=== PATIENT | male | born 1945 | race Caucasian/White ===

== ENCOUNTER 2017-09-29 22:46 | Emergency (ER) | payer MEDICARE, BC ==
[2017-09-29 23:07] VITALS: BP 137/62
[2017-09-29] MEDS ORDERED: Acetaminophen 500 MG Tab PO ONE (23:21)
[2017-09-29] MEDS ORDERED: Sodium Chloride 0.9% 1,000 ML IV SCH (23:30)
--- NOTE | 2017-09-29 23:50 | EDM.PDOC ---
ED HPI GENERAL MEDICAL PROBLEM - General Chief Complaint: Fever Stated Complaint: ILLNESS Time Seen by Provider: 09/29/17 23:10 Source of Information: Reports: Patient, Family History Limitations: Reports: No Limitations - History of Present Illness INITIAL COMMENTS - FREE TEXT/NARRATIVE: 72-year-old male who has a history of a severe right leg injury has chronic lymphedema and swelling of the right leg. Intermittently he participates in and activity that causes movement of the "toxins" from his leg and he spikes a temporary fever. He receives IV hydration and anti-inflammatories or Tylenol and the fever typically resolves in 12 hours. He has no other symptoms such as illness, sore throat, cough, redness of the skin, dysuria, nausea or vomiting. His fever is already been reduced to 99.3. He declines any workup, just is looking for IV fluids. Onset: Sudden Duration: Hour(s): (Fever has been ongoing for the last few hours) Location: Reports: Lower Extremity, Right Severity: Moderate - Related Data Allergies Allergy/AdvReac Type Severity Reaction Status Date / Time No Known Allergies Allergy Verified 07/07/13 08:55 Home Meds: Home Meds Allopurinol [Zyloprim] 300 mg PO DAILY 07/07/13 [History] Aspirin [Children's Aspirin] 81 mg PO DAILY 07/07/13 [History] Fenofibrate Nanocrystallized [Fenofibrate] 48 mg PO DAILY 07/07/13 [History] Insulin Aspart [NovoLOG] 0 unit SQ ACBRK 07/07/13 [History] Insulin Glarg,Human.Rec.Analog [LantUS] 90 unit SQ BID 07/07/13 [History] Naproxen [Naprosyn] 500 mg PO DAILY PRN 07/07/13 [History] Omeprazole 20 mg PO DAILY 07/07/13 [History] Simvastatin [Zocor] 10 mg PO DAILY 07/07/13 [History] amLODIPine [Norvasc] 10 mg PO DAILY 07/07/13 [History] Cholecalciferol (Vitamin D3) [Vitamin D3] 2,000 unit PO ASDIRECTED 09/29/17 [ History] Doxazosin Mesylate [Cardura] 2 mg PO DAILY 09/29/17 [History] Lisinopril [Zestril] 2.5 mg PO DAILY 09/29/17 [History] Past Medical History HEENT History: Reports: Impaired Vision Cardiovascular History: Reports: High Cholesterol, Hypertension, Other (See Below) Other Cardiovascular History: pericarditis Endocrine/Metabolic History: Reports: Diabetes, Type II Oncologic (Cancer) History: Reports: Malignant Melanoma Dermatologic History: Reports: Melanoma - Infectious Disease History Infectious Disease History: Reports: Chicken Pox, Measles, Mumps - Past Surgical History HEENT Surgical History: Reports: Cataract Surgery GI Surgical History: Reports: Appendectomy, Hernia, Abdominal Social & Family History - Family History Cardiac: Reports: Hypertension Oncologic: Reports: Other (See Below) Other Oncologic Family History: Melanoma - Tobacco Use Smoking Status *Q: Never Smoker Second Hand Smoke Exposure: Yes - Caffeine Use Caffeine Use: Reports: Coffee, Soda - Alcohol Use Days Per Week of Alcohol Use: 1 Number of Drinks Per Day: 2 Total Drinks Per Week: 2 - Recreational Drug Use Recreational Drug Use: No ED ROS GENERAL - Review of Systems Review Of Systems: See Below Constitutional: Reports: Fever, Chills, Malaise HEENT: Reports: No Symptoms Respiratory: Denies: Shortness of Breath, Cough Cardiovascular: Denies: Chest Pain GI/Abdominal: Denies: Abdominal Pain, Nausea, Vomiting : Reports: No Symptoms Musculoskeletal: Denies: Leg Pain Skin: Reports: No Symptoms Psychiatric: Reports: No Symptoms ED EXAM, GENERAL - Physical Exam Exam: See Below Exam Limited By: No Limitations General Appearance: Alert, No Apparent Distress Eye Exam: Bilateral Eye: EOMI Throat/Mouth: Normal Inspection Head: Atraumatic Respiratory/Chest: No Respiratory Distress, Lungs Clear Cardiovascular: Regular Rate, Rhythm, Tachycardia (Slight tachycardia) GI/Abdominal: Soft, Non-Tender Extremities: Other (Patient has significant diffuse right lower leg edema from the thigh to the toes. There is no warmth, erythema, or wounds.) Neurological: Alert, Oriented Psychiatric: Normal Affect, Normal Mood Skin Exam: Warm, Dry Course - Vital Signs Last Recorded V/S: Last Vital Signs Temp 99.3 F 09/29/17 23:10 Pulse 110 H 09/29/17 23:10 Resp 16 09/29/17 23:10 BP 137/62 09/29/17 23:10 Pulse Ox 95 09/29/17 23:10 - Orders/Labs/Meds Meds: Medications Discontinued Medications Generic Name Dose Route Start Last Admin Trade Name Freq PRN Reason Stop Dose Admin Acetaminophen 1,000 mg 09/29/17 23:21 09/29/17 23:34 Tylenol Extra Strength PO 09/29/17 23:22 1,000 mg ONETIME ONE Administration Sodium Chloride 1,000 mls @ 1,000 mls/hr 09/29/17 23:30 09/29/17 23:32 Normal Saline IV 1,000 mls/hr ASDIRECTED TAHIRA Administration - Re-Assessments/Exams Free Text/Narrative Re-Assessment/Exam: 09/29/17 23:48 Patient was given 1000 mg of acetaminophen orally, and 1 L of normal saline. He will return if symptoms persist or he worsens. He can also call his primary provider tomorrow to discuss any further workup or treatment needed. Departure - Departure Time of Disposition: 01:25 Disposition: Home, Self-Care 01 Condition: Good Clinical Impression: Lymphedema of leg Qualifiers: Laterality: right Qualified Code(s): I89.0 - Lymphedema, not elsewhere classified - Discharge Information Instructions: Lymphedema Referrals: PCP,None [Primary Care Provider] - Forms: ED Department Discharge Care Plan Goals: Continue with fever control with acetaminophen along with ibuprofen or naproxen as needed. Return right away if redness of the skin develops. Recheck with Dr. Irby in the next day or two if not improving satisfactorily.
== END 2017-09-30 00:30 | disposition home or self-care (01) ==
LOC: JP.ED 22:46
DX: I89.0 Lymphedema, not elsewhere classified (principal); I10 Essential (primary) hypertension; E78.00 Pure hypercholesterolemia, unspecified; E11.9 Type 2 diabetes mellitus without complications; Z77.22 Contact with and (suspected) exposure to environmental tobacco smoke (acute) (chronic); Z90.49 Acquired absence of other specified parts of digestive tract; Z98.890 Other specified postprocedural states; Z79.4 Long term (current) use of insulin; Z79.899 Other long term (current) drug therapy; Z79.82 Long term (current) use of aspirin
CPT/HCPCS: 96360; 99283; A9270; J7040

== ENCOUNTER 2020-05-14 06:53 | Emergency (ER) | payer MEDICARE, BC ==
--- NOTE | 2020-05-14 07:04 | EDM.PDOC ---
ED HPI GENERAL MEDICAL PROBLEM - General Chief Complaint: Cardiovascular Problem Stated Complaint: CHEST PAIN Time Seen by Provider: 05/14/20 07:01 Source of Information: Reports: Patient, Old Records, RN History Limitations: Reports: No Limitations - History of Present Illness INITIAL COMMENTS - FREE TEXT/NARRATIVE: 75 yo male presents with L sided chest pain since about 9 pm last night. The pain kept him awake all night. No associated SOB, nausea or diaphoresis. Has a pHx of CHF, but not angina or WI's. Has not noticed anything that makes his pain change much except sitting seems to help a little. Has had all of his morning meds already today. Does have a pHx of GERD. Onset: Sudden Onset Date: 05/13/20 Onset Time: 21:00 Duration: Hour(s):, Constant Location: Reports: Chest Quality: Reports: Pressure Severity: Moderate Improves with: Reports: Other (sitting?) Worsens with: Reports: None Context: Reports: Other (See HPI) Associated Symptoms: Reports: Chest Pain. 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) (took his morning meds) Chest Pain Score (Numeric/FACES): 7 - Related Data Allergies Allergy/AdvReac Type Severity Reaction Status Date / Time No Known Allergies Allergy Verified 05/14/20 07:04 Home Meds: Home Meds Aspirin [Children's Aspirin] 81 mg PO DAILY 07/07/13 [History] Fenofibrate Nanocrystallized [Fenofibrate] 48 mg PO DAILY 07/07/13 [History] Insulin Aspart [NovoLOG] 0 unit SQ ASDIRECTED 07/07/13 [History] Insulin Glarg,Human.Rec.Analog [LantUS] 80 unit SQ BID 07/07/13 [History] Omeprazole 20 mg PO DAILY 07/07/13 [History] Simvastatin [Zocor] 10 mg PO DAILY 07/07/13 [History] Cholecalciferol (Vitamin D3) [Vitamin D3] 1,000 unit PO DAILY 09/29/17 [History] Doxazosin Mesylate [Cardura] 2 mg PO DAILY 09/29/17 [History] *Iron 0 mg PO DAILY 05/14/20 [History] Colchicine 0.6 mg PO BEDTIME 05/14/20 [History] Febuxostat 80 mg PO BEDTIME 05/14/20 [History] Furosemide 40 mg PO DAILY 05/14/20 [History] Losartan [Cozaar] 25 mg PO DAILY 05/14/20 [History] Past Medical History HEENT History: Reports: Impaired Vision Cardiovascular History: Reports: High Cholesterol, Hypertension, Other (See Below) Other Cardiovascular History: pericarditis Endocrine/Metabolic History: Reports: Diabetes, Type II Oncologic (Cancer) History: Reports: Malignant Melanoma Dermatologic History: Reports: Melanoma - Infectious Disease History Infectious Disease History: Reports: Chicken Pox, Measles, Mumps - Past Surgical History HEENT Surgical History: Reports: Cataract Surgery GI Surgical History: Reports: Appendectomy, Hernia, Abdominal Social & Family History - Family History Cardiac: Reports: Hypertension Oncologic: Reports: Other (See Below) Other Oncologic Family History: Melanoma - Caffeine Use Caffeine Use: Reports: Coffee, Soda ED ROS GENERAL - Review of Systems Review Of Systems: See Below Constitutional: Reports: No Symptoms HEENT: Reports: No Symptoms Respiratory: Reports: No Symptoms Cardiovascular: Reports: Chest Pain Endocrine: Reports: No Symptoms GI/Abdominal: Reports: No Symptoms : Reports: No Symptoms Musculoskeletal: Reports: No Symptoms Skin: Reports: No Symptoms Neurological: Reports: No Symptoms ED EXAM, GENERAL - Physical Exam Exam: See Below Exam Limited By: No Limitations General Appearance: Alert, WD/WN, No Apparent Distress, Obese Eye Exam: Bilateral Eye: Normal Inspection Ears: Normal External Exam, Normal Canal, Hearing Grossly Normal Ear Exam: Bilateral Ear: Auricle Normal, Canal Normal Nose: Normal Inspection, No Blood Throat/Mouth: Normal Inspection, Normal Lips, Normal Oropharynx, Normal Voice, No Airway Compromise Head: Atraumatic, Normocephalic Neck: Normal Inspection Respiratory/Chest: No Respiratory Distress, Lungs Clear, Normal Breath Sounds, No Accessory Muscle Use, Chest Non-Tender Cardiovascular: Regular Rate, Rhythm, No Edema GI/Abdominal: Normal Bowel Sounds, Soft, Non-Tender, No Distention Back Exam: Normal Inspection. No: CVA Tenderness (R), CVA Tenderness (L) Extremities: Normal Inspection, Normal Range of Motion, Non-Tender, No Pedal Edema Neurological: Alert, Oriented, CN II-XII Intact, Normal Cognition, No Motor/Sensory Deficits Psychiatric: Normal Affect, Normal Mood Skin Exam: Warm, Dry, Intact, Normal Color, No Rash EKG INTERPRETATION EKG Date: 05/14/20 Time: 06:50 Rhythm: NSR Rate (Beats/Min): 69 [place]: Normal P-Wave: Present QRS: Normal ST-T: Normal QT: Normal Comparison: NA - No Prior EKG Course - Vital Signs Last Recorded V/S: Last Vital Signs Temp 35.4 C L 05/14/20 07:02 Pulse 56 L 05/14/20 09:33 Resp 10 L 05/14/20 09:33 BP 123/56 L 05/14/20 09:33 Pulse Ox 100 05/14/20 09:33 - Orders/Labs/Meds Orders: Active Orders 24 hr Category Date Time Status Cardiac Monitoring [RC] .As Directed Care 05/14/20 06:57 Active EKG Documentation Completion [RC] ASDIRECTED Care 05/14/20 06:57 Active Chest 2V [CR] Stat Exams 05/14/20 08:04 Taken Sodium Chloride 0.9% [Saline Flush] Med 05/14/20 07:21 Active 10 ml FLUSH ASDIRECTED PRN Saline Lock Insert [OM.PC] Routine Oth 05/14/20 07:21 Ordered EKG 12 Lead [EK] Routine Ther 05/14/20 06:57 Ordered Medication Orders Sodium Chloride (Saline Flush) 10 ml FLUSH ASDIRECTED PRN PRN Reason: Keep Vein Open Last Admin: 05/14/20 07:45 Dose: 10 ml Documented by: GILL Labs: Laboratory Tests 05/14/20 05/14/20 05/14/20 Range/Units 07:24 07:24 08:02 WBC 4.7 (4.5-11.0) K/uL RBC 4.82 (4.30-5.90) M/uL Hgb 14.0 (12.0-15.0) g/dL Hct 41.9 (40.0-54.0) % MCV 87 (80-98) fL MCH 29 (27-31) pg MCHC 33 (32-36) % Plt Count 194 (150-400) K/uL D-Dimer, Quantitative 186 (0.0-400.0) ng/mL Sodium 143 (140-148) mmol/L Potassium 3.8 (3.6-5.2) mmol/L Chloride 106 (100-108) mmol/L Carbon Dioxide 27 (21-32) mmol/L Anion Gap 10.4 (5.0-14.0) mmol/L BUN 52 H (7-18) mg/dL Creatinine 2.2 H (0.8-1.3) mg/dL Est Cr Clr Drug Dosing 31.85 mL/min Estimated GFR (MDRD) 29 L (>60) Glucose 205 H (74-106) mg/dL Calcium 9.1 (8.5-10.1) mg/dL Troponin I < 0.017 (0.000-0.056) ng/mL Urine Color (YELLOW) Urine Appearance (CLEAR) Urine pH (5.0-8.0) Ur Specific [place] (1.008-1.030) Urine Protein (NEGATIVE) mg/dL Urine Glucose (UA) (NEGATIVE) mg/dL Urine Ketones (NEGATIVE) mg/dL Urine Occult Blood (NEGATIVE) Urine Nitrite (NEGATIVE) Urine Bilirubin (NEGATIVE) Urine Urobilinogen (0.2-1.0) EU/dL Ur Leukocyte Esterase (NEGATIVE) Urine RBC (0-5) Urine WBC (0-5) Ur Epithelial Cells Amorphous Sediment Urine Bacteria Urine Mucus 05/14/20 05/14/20 Range/Units 10:02 10:18 WBC (4.5-11.0) K/uL RBC (4.30-5.90) M/uL Hgb (12.0-15.0) g/dL Hct (40.0-54.0) % MCV (80-98) fL MCH (27-31) pg MCHC (32-36) % Plt Count (150-400) K/uL D-Dimer, Quantitative (0.0-400.0) ng/mL Sodium (140-148) mmol/L Potassium (3.6-5.2) mmol/L Chloride (100-108) mmol/L Carbon Dioxide (21-32) mmol/L Anion Gap (5.0-14.0) mmol/L BUN (7-18) mg/dL Creatinine (0.8-1.3) mg/dL Est Cr Clr Drug Dosing mL/min Estimated GFR (MDRD) (>60) Glucose (74-106) mg/dL Calcium (8.5-10.1) mg/dL Troponin I < 0.017 (0.000-0.056) ng/mL Urine Color Yellow (YELLOW) Urine Appearance Clear (CLEAR) Urine pH 7.0 (5.0-8.0) Ur Specific [place] 1.020 (1.008-1.030) Urine Protein Negative (NEGATIVE) mg/dL Urine Glucose (UA) Negative (NEGATIVE) mg/dL Urine Ketones Negative (NEGATIVE) mg/dL Urine Occult Blood Negative (NEGATIVE) Urine Nitrite Negative (NEGATIVE) Urine Bilirubin Negative (NEGATIVE) Urine Urobilinogen 1.0 (0.2-1.0) EU/dL Ur Leukocyte Esterase Negative (NEGATIVE) Urine RBC Not seen (0-5) Urine WBC Not seen (0-5) Ur Epithelial Cells Rare Amorphous Sediment Not seen Urine Bacteria Not seen Urine Mucus Not seen Meds: Medications Generic Name Dose Route Start Last Admin Trade Name Freq PRN Reason Stop Dose Admin Sodium Chloride 10 ml 05/14/20 07:21 05/14/20 07:45 Saline Flush FLUSH 10 ml ASDIRECTED PRN Administration Keep Vein Open Discontinued Medications Generic Name Dose Route Start Last Admin Trade Name Freq PRN Reason Stop Dose Admin Acetaminophen 1,000 mg 05/14/20 09:15 05/14/20 09:33 Tylenol Extra Strength PO 05/14/20 09:16 1,000 mg ONETIME ONE Administration Al Hydroxide/Mg Hydroxide 30 ml 05/14/20 09:14 05/14/20 09:33 Mag-Al Plus PO 05/14/20 09:15 30 ml ONETIME ONE Administration Aspirin 243 mg 05/14/20 07:20 05/14/20 07:45 Aspirin PO 05/14/20 07:21 243 mg ONETIME ONE Administration Lactated Ringer's 1,000 mls @ 1,000 mls/hr 05/14/20 08:00 05/14/20 08:08 Ringers, Lactated IV 05/14/20 08:59 1,000 mls/hr BOLUS ONE Administration Nitroglycerin 0.4 mg 05/14/20 07:21 05/14/20 07:46 Nitrostat SL 05/14/20 07:22 0.4 mg ONETIME ONE Administration - Radiology Interpretation Free Text/Narrative:: CXR-neg - Re-Assessments/Exams Free Text/Narrative Re-Assessment/Exam: 05/14/20 08:06 No change in chest pain with NTG, BP dropped into the 80's with this. Free Text/Narrative Re-Assessment/Exam: 05/14/20 10:56 Ambulated the loop twice with no worsening of his sx's. Departure - Departure Time of Disposition: 10:56 Disposition: Home, Self-Care 01 Condition: Good Clinical Impression: Nonspecific chest pain Instructions: Nonspecific Chest Pain, Adult, [id number] Referrals: PCP,None [Primary Care Provider] - Forms: ED Department Discharge Additional Instructions: Take acetaminophen up to 1000 mg every 6 hrs as needed for pain relief. Recheck with your provider if not improving. Return if worse. Sepsis Event Note (ED) - Focused Exam Vital Signs: Vital Signs Temp Pulse Resp BP BP Pulse Ox 05/14/20 09:33 56 L 10 L 123/56 L 100 05/14/20 09:05 56 L 10 L 127/51 L 100 05/14/20 08:22 55 L 130/57 L 99 05/14/20 08:09 57 L 12 86/52 L 98 05/14/20 08:00 57 L 86/42 L 97 05/14/20 07:46 122/64 05/14/20 07:32 61 10 L 122/64 97 05/14/20 07:02 35.4 C L 70 10 L 119/65 97 - My Orders Last 24 Hours: My Active Orders 05/14/20 06:57 Cardiac Monitoring [RC] .As Directed EKG Documentation Completion [RC] ASDIRECTED EKG 12 Lead [EK] Routine 05/14/20 07:21 Sodium Chloride 0.9% [Saline Flush] 10 ml FLUSH ASDIRECTED PRN Saline Lock Insert [OM.PC] Routine 05/14/20 08:04 Chest 2V [CR] Stat - Assessment/Plan Last 24 Hours: My Active Orders 05/14/20 06:57 Cardiac Monitoring [RC] .As Directed EKG Documentation Completion [RC] ASDIRECTED EKG 12 Lead [EK] Routine 05/14/20 07:21 Sodium Chloride 0.9% [Saline Flush] 10 ml FLUSH ASDIRECTED PRN Saline Lock Insert [OM.PC] Routine 05/14/20 08:04 Chest 2V [CR] Stat
[2020-05-14] MEDS ORDERED: Aspirin 81 MG Tab.Chew PO ONE (07:20)
[2020-05-14] MEDS ORDERED: Sodium Chloride 0.9% 10 ML Syringe FLUSH PRN (07:21)
[2020-05-14] MEDS ORDERED: Nitroglycerin 0.4 MG Tab.SL SL ONE (07:21)
[2020-05-14] MEDS ORDERED: Lactated Ringers 1,000 ML IV ONE (08:00)
[2020-05-14] MEDS ORDERED: Aluminum Hydroxide/Magnesium Hydroxide/Simethicone Susp 30 ML Cup PO ONE (09:14)
[2020-05-14 09:15] VITALS: PULSE 56
[2020-05-14] MEDS ORDERED: Acetaminophen 500 MG Tab PO ONE (09:15)
[2020-05-14 09:34] VITALS: BP 123/56
--- NOTE | 2020-05-15 09:53 | CR ---
CHEST: 2 view CLINICAL HISTORY:Chest pain COMPARISON:None available FINDINGS: The heart size, pulmonary vascularity and hilar structures are normal. No infiltrate effusion or pneumothorax is seen. There is a wedge compression deformity of T12. Chronology is uncertain. IMPRESSION: No acute cardiopulmonary process. T12 compression deformity of uncertain chronology
== END 2020-05-14 11:27 | disposition home or self-care (01) ==
LOC: JP.ED 06:53
DX: R07.9 Chest pain, unspecified (principal); I11.0 Hypertensive heart disease with heart failure; I50.9 Heart failure, unspecified; E78.00 Pure hypercholesterolemia, unspecified; E11.9 Type 2 diabetes mellitus without complications; K21.9 Gastro-esophageal reflux disease without esophagitis; Z79.4 Long term (current) use of insulin; Z79.82 Long term (current) use of aspirin; Z79.899 Other long term (current) drug therapy; Z90.49 Acquired absence of other specified parts of digestive tract
CPT/HCPCS: 36415; 71046; 80048; 81001; 84484; 85027; 85379; 93005; 96360; 99285; A9270; J7120

== ENCOUNTER 2020-05-18 06:23 | Day surgery (SDC) | payer MEDICARE, BC ==
[2020-05-18] MEDS ORDERED: Sodium Chloride 0.9% 1,000 ML IV SCH (07:15)
[2020-05-18] MEDS ORDERED: Midazolam 1 MG/ML 2 ML SDV ONE (07:23)
[2020-05-18] MEDS ORDERED: fentaNYL 100 MCG/2 ML SDV ONE (07:23)
[2020-05-18] MEDS ORDERED: Propofol 200 MG/20 ML SDV ONE (07:23)
[2020-05-18 08:52] VITALS: BP 120/54; PULSE 56
--- NOTE | 2020-05-18 15:03 | PROC ---
DATE OF PROCEDURE: 05/18/2020 SURGEON: Jaya Irby MD INDICATIONS: Homero is a 75-year-old male who has had significant abdominal pain. He comes in for esophagogastroduodenoscopy. This is done as an outpatient in the OR. The risks and benefits were explained to the patient. PREOPERATIVE DIAGNOSIS: Abdominal pain. POSTOPERATIVE DIAGNOSIS: Multiple lesions in the duodenal bulb. Biopsy reports are pending. PROCEDURE IN DETAIL: Anesthesia was given by nurse cardiology coordinator. During the procedure, we used 2 mg of Versed, 2 mcg of fentanyl, and 200 mg of propofol. The Olympus 180 scope was used, was placed into the pharynx and into the esophagus without difficulty and advanced under direct vision through the esophagus into the stomach. The pylorus was identified and the tube was passed into the duodenum. Immediately upon entering the duodenal area, noted multiple lesions throughout the entire duodenal bulb. The tube was then advanced into the first and second part of the duodenum. We did come back and observed the areas again. We also got Dr. Lenin Leos to take a look at these. We did multiple biopsies of the areas and there was a minimal amount of bleeding. The tube was brought back into the stomach. The greater and lesser curvature and antrum and fundus were closely evaluated. No abnormality was found and pictures were taken. The GE junction was intact. The remainder of the esophagus was unremarkable. The vocal cords appeared unremarkable. The tube was removed. The patient tolerated the procedure well. Jaya Irby MD /[id number] MTDD
== END 2020-05-18 09:00 | disposition home or self-care (01) ==
LOC: JP.SDS 06:23
PROVIDERS: ATTEND Internal Medicine
DX: K31.89 Other diseases of stomach and duodenum (principal); I11.0 Hypertensive heart disease with heart failure; I50.9 Heart failure, unspecified; I25.10 Atherosclerotic heart disease of native coronary artery without angina pectoris; E11.9 Type 2 diabetes mellitus without complications
CPT/HCPCS: 43239; 88305; J2250; J2704; J3010; J7030

== ENCOUNTER 2024-04-04 17:24 | Emergency (ER) | payer MEDICARE, BC ==
[2024-04-04 17:51] VITALS: BP 142/52; PULSE 71
[2024-04-04 18:09] LABS: APPEARANCE,URINE SLIGHTLY CLOUDY (CLEAR); BILIRUBIN,URINE SMALL (NEGATIVE); COLOR,URINE YELLOW (YELLOW); GLUCOSE,URINE NEGATIVE (NEGATIVE); KETONES,URINE TRACE mg/dL (NEGATIVE); LEUKOCYTE ESTERASE,URINE TRACE (NEGATIVE); NITRITE,URINE NEGATIVE (NEGATIVE); OCCULT BLOOD,URINE TRACE-INTACT (NEGATIVE); PH,URINE 5.5 (5.0-8.0); PROTEIN,URINE TRACE mg/dL (NEGATIVE)
[2024-04-04 18:15] LABS: AMORPHOUS SEDIMENT,URINE NOT SEEN; BACTERIA,URINE FEW; EPITHELIAL CELLS,URINE MODERATE; MUCUS,URINE NOT SEEN; RBC,URINE 0-5 (0-5); WBC,URINE 20-30 (0-5)
[2024-04-04 18:16] LABS: BASOPHILS ABSOLUTE AUTO 0.03 K/uL (0.00-0.10); BASOPHILS PERCENT AUTO 0.3 % (0.1-1.3); EOSINOPHILS ABSOLUTE AUTO 0.07 K/uL (0.00-0.40); EOSINOPHILS PERCENT AUTO 0.8 % (0.0-5.4); HEMATOCRIT 35.7 % (38.4-49.7); HEMOGLOBIN 12.2 g/dL (12.9-16.9); IMMATURE GRAN ABSOLUTE AUTO 0.03 K/uL (0.00-0.23); IMMATURE GRAN PERCENT AUTO 0.3 % (0.0-0.7); LYMPHOCYTES ABSOLUTE AUTO 0.65 K/uL (0.8-3.3); LYMPHOCYTES PERCENT AUTO 7.1 % (11.4-47.7); MEAN CORPUSCULAR HEMOGLOBIN 30.7 pg (31.6-35.5); MEAN CORPUSCULAR HGB CONC 34.2 g/dL (31.6-35.5); MEAN CORPUSCULAR VOLUME 89.9 fL (81.4-99.0); MONOCYTES ABSOLUTE AUTO 0.56 K/uL (0.20-0.90); MONOCYTES PERCENT AUTO 6.1 % (3.3-12.6); NEUTROPHILS ABSOLUTE AUTO 7.85 K/uL (1.0-7.6); NEUTROPHILS PERCENT AUTO 85.4 % (40.0-78.1); PLATELET COUNT,PLT 177 K/uL (130-375); RED BLOOD CELL COUNT 3.97 M/uL (4.14-5.76); WHITE BLOOD CELL COUNT,WBC 9.2 K/uL (3.2-11.0)
[2024-04-04 18:31] LABS: CALCIUM 9.2 mg/dL (8.5-10.1); CREATININE 3.2 mg/dL (0.8-1.3); EST CRCL DRUG DOSING (CG) 20.59 mL/min; POTASSIUM,K 3.9 mmol/L (3.6-5.2)
[2024-04-04 18:32] LABS: ANION GAP 13.9 mmol/L (5.0-14.0)
[2024-04-04] MEDS: cefTRIAXone 1 GM in Sodium Chloride 0.9% 50 ML IV ONE (20:07)
[2024-04-04] MEDS: Sodium Chloride 0.9% 500 ML IV SCH (20:07)
== END 2024-04-04 22:04 | disposition home or self-care (01) ==
LOC: JP.ED 17:24
DX: N39.0 Urinary tract infection, site not specified (principal); E78.00 Pure hypercholesterolemia, unspecified; I10 Essential (primary) hypertension; K21.9 Gastro-esophageal reflux disease without esophagitis; E11.9 Type 2 diabetes mellitus without complications; E66.9 Obesity, unspecified; Z68.34 Body mass index [BMI] 34.0-34.9, adult; Z79.899 Other long term (current) drug therapy; Z79.4 Long term (current) use of insulin; Z79.82 Long term (current) use of aspirin
CPT/HCPCS: 36415; 80048; 81001; 85025; 96365; 99284; J0696; J3490; J7030; 99283